=== PATIENT | female | born 1955 | race African-American/Black ===

== ENCOUNTER 2016-07-30 15:32 | Emergency (ER) | payer MEDICARE ==
[~2016-07-30] VITALS: Ht 175.3 cm; Wt 113.4 kg
[2016-07-30] MEDS ORDERED: KETOROLAC TROMETHAMINE INJ 30 MG/ML VIAL ONE (16:20)
[2016-07-30] MEDS ORDERED: KETOROLAC TROMETHAMINE INJ 30 MG/ML VIAL IM ONE (16:30)
[2016-07-30 18:05] VITALS: BP 152/87
== END 2016-07-30 18:18 | disposition home or self-care (01) ==
LOC: ER 15:38
DX: M62.830 Muscle spasm of back (principal); I10 Essential (primary) hypertension; Z88.5 Allergy status to narcotic agent; Z88.6 Allergy status to analgesic agent; Z88.8 Allergy status to other drugs, medicaments and biological substances; Z91.041 Radiographic dye allergy status; V43.62XA Car passenger injured in collision with other type car in traffic accident, initial encounter; Y93.89 Activity, other specified; Y92.488 Other paved roadways as the place of occurrence of the external cause; Y99.8 Other external cause status
CPT/HCPCS: 96372; 99283; A4606; J1885; Z7610